=== PATIENT | female | born 1995 | race Caucasian/White ===

== ENCOUNTER 2016-12-11 05:04 | Emergency (ER) | payer MEDICAID ==
[~2016-12-11] VITALS: Ht 162.6 cm; Wt 54.5 kg
[2016-12-11 05:16] VITALS: Ht 162.6 cm; Wt 54.5 kg
[2016-12-11] MEDS ORDERED: KETOROLAC 60 MG INJ IM STA (05:30)
[2016-12-11] MEDS ORDERED: ONDANSETRON (ODT) 4 MG TAB ODT STA (05:37)
[2016-12-11 05:52] LABS: URINE BLOOD (Dip) POC Trace-intact (NEGATIVE)
[2016-12-11 05:59] LABS: BASOPHILS % 0.2 % (0.0-2.0); EOSINOPHILS % 0.1 % (0.0-7.0); HEMATOCRIT 40.5 % (37.0-47.0); LYMPHOCYTES # 1.1 10^3/ul (0.8-2.9); LYMPHOCYTES % 10.5 % (15.0-51.0); MEAN CORPUSCULAR HEMOGLOBIN 27.1 pg (29.0-33.0); MEAN CORPUSCULAR HGB CONC 32.1 g/dl (32.0-37.0); MEAN CORPUSCULAR VOLUME 84.6 fl (82.0-101.0); MEAN PLATELET VOLUME 11.2 fl (7.4-10.4); MONOCYTE # 0.3 10^3/ul (0.3-0.9); MONOCYTES % 2.8 % (0.0-11.0); NEUTROPHIL # 9.3 10^3/ul (1.6-7.5); NEUTROPHILS % 86.2 % (39.0-77.0); PLATELET COUNT 226 10^3/UL (140-415); RED BLOOD COUNT 4.79 10^6/ul (4.20-5.40); RED CELL DISTRIBUTION WIDTH 13.2 % (11.5-14.5); WHITE BLOOD COUNT 10.7 10^3/ul (4.8-10.8)
[2016-12-11 06:10] LABS: ADD UMIC NO; UR ASCORBIC ACID 20 mg/dL (NEGATIVE); UR BILIRUBIN (Dip) NEGATIVE (NEGATIVE); UR BLOOD (Dip) NEGATIVE (NEGATIVE); UR CLARITY CLEAR (CLEAR); UR COLOR YELLOW (YELLOW); UR GLUCOSE (Dip) 1+ mg/dL (NEGATIVE); UR KETONES (Dip) 1+ mg/dL (NEGATIVE); UR LEUKOCYTE ESTERASE (Dip) NEGATIVE Leu/ul (NEGATIVE); UR NITRITE (Dip) NEGATIVE (NEGATIVE); UR SPECIFIC GRAVITY (Dip) 1.018 (1.003-1.030); UR TOTAL PROTEIN (Dip) NEGATIVE (NEGATIVE); UR UROBILINOGEN (Dip) NEGATIVE (NEGATIVE)
[2016-12-11 06:28] LABS: D-DIMER 220.13 ng/ml (<460)
[2016-12-11 06:31] LABS: ALBUMIN 4.6 g/dl (3.3-4.9); ALBUMIN/GLOBULIN RATIO 1.31; BILIRUBIN,INDIRECT 0.5 mg/dl (0-1.1); BILIRUBIN,TOTAL 0.5 mg/dl (0.2-1.3); CALCIUM 9.6 mg/dl (8.4-10.2); CREATININE 0.64 mg/dl (0.44-1.00); POTASSIUM 4.1 mmol/L (3.5-5.1); TOTAL PROTEIN 8.1 g/dl (6.1-8.1)
--- NOTE | 2016-12-11 06:42 | RADRPT ---
PROCEDURE: XR Chest. CLINICAL INDICATION: Abdominal pain TECHNIQUE: Single portable view of the chest was obtained. COMPARISON: None. FINDINGS: Normal cardiomediastinal silhouette. The lungs are clear. No pleural effusion or pneumothorax. IMPRESSION: No acute cardiopulmonary disease. RPTAT:AAJJ Physician [place] Date Time Electronically viewed and signed by Shruthi Luna Physician on 12/11/2016 06:42 /
[2016-12-11] MEDS ORDERED: IBUP400T22 PO (06:53)
--- NOTE | 2016-12-11 06:57 | ERD ---
ER Documentation Chief Complaint Date/Time DATE: 12/11/16 TIME: 06:55 Chief Complaint epigastric pain w/ vomiting since 5 hours ago HPI 21-year-old female presents with left upper abdominal pain or left anterior chest wall pain starting early this morning. She denies any fevers, cough, sore throat. She denies any lower abdominal pain. She has a sensation of possible shortness of breath. She denies any calf swelling. She denies any oral contraceptive use or history of DVT or PE. ROS All systems reviewed and are negative except as per history of present illness. Medications Home Meds Active Scripts Ibuprofen* (Motrin*) 400 Mg Tab, 400 MG PO Q6, #20 TAB Prov:GIL PAUL MD 12/11/16 Allergies Allergies: Coded Allergies: No Known Allergy (Unverified , 12/11/16) PMhx/Soc Medical and Surgical Hx: pt denies Medical Hx, pt denies Surgical Hx Hx Alcohol Use: No Hx Substance Use: No Hx Tobacco Use: No Smoking Status: Never smoker Physical Exam Vitals Vital Signs Date Time Temp Pulse Resp B/P Pulse Ox O2 Delivery O2 Flow Rate FiO2 12/11/16 05:16 98.8 104 20 111/64 99 Physical Exam Const: [], [id number]. Head: Atraumatic Eyes: Normal Conjunctiva ENT: Normal External Ears, Nose and Mouth. Neck: Full range of motion..~ No meningismus. Resp: Clear to auscultation bilaterally Cardio: Regular rate and rhythm, no murmurs Abd: Soft, non tender, non distended. Normal bowel sounds are patient points to the left T10 area as a source of pain. Is not reproducible. There is no tenderness at McBurney's point no Meyer sign and no rebound. Skin: No petechiae or rashes Back: No midline or flank tenderness Ext: No cyanosis, or edema Neur: Awake and alert Psych: Normal Mood and Affect Result Diagram: 12/11/16 0547 12/11/16 0547 Results 24 hrs Laboratory Tests Test 12/11/16 05:45 12/11/16 05:47 12/11/16 06:00 Urine Color YELLOW Urine Clarity CLEAR Urine pH 7.0 Urine Specific Sarah 1.018 Urine Ketones 1+mg/dL Urine Nitrite NEGATIVEmg/dL Urine Bilirubin NEGATIVEmg/dL Urine Urobilinogen NEGATIVEmg/dL Urine Leukocyte Esterase NEGATIVELeu/ul Urine Hemoglobin NEGATIVEmg/dL Urine Glucose 1+mg/dL Urine Total Protein NEGATIVEmg/dl White Blood Count 10.710^3/ul Red Blood Count 4.7910^6/ul Hemoglobin 13.0g/dl Hematocrit 40.5% Mean Corpuscular Volume 84.6fl Mean Corpuscular Hemoglobin 27.1pg Mean Corpuscular Hemoglobin Concent 32.1g/dl Red Cell Distribution Width 13.2% Platelet Count 61734^3/UL Mean Platelet Volume 11.2fl Neutrophils % 86.2% Lymphocytes % 10.5% Monocytes % 2.8% Eosinophils % 0.1% Basophils % 0.2% Nucleated Red Blood Cells % 0.0/100WBC Neutrophils # 9.310^3/ul Lymphocytes # 1.110^3/ul Monocytes # 0.310^3/ul Eosinophils # 0.010^3/ul Basophils # 0.010^3/ul Nucleated Red Blood Cells # 0.010^3/ul D-Dimer 220.13ng/ml D-Dimer Comment Sodium Level 142mmol/L Potassium Level 4.1mmol/L Chloride Level 106mmol/L Carbon Dioxide Level 25mmol/L Anion Gap 15 Blood Urea Nitrogen 13mg/dl Creatinine 0.64mg/dl Glucose Level 125mg/dl Calcium Level 9.6mg/dl Total Bilirubin 0.5mg/dl Direct Bilirubin 0.00mg/dl Indirect Bilirubin 0.5mg/dl Aspartate Amino Transf (AST/SGOT) 29IU/L Alanine Aminotransferase (ALT/SGPT) 35IU/L Alkaline Phosphatase 45IU/L Total Protein 8.1g/dl Albumin 4.6g/dl Globulin 3.50g/dl Albumin/Globulin Ratio 1.31 Lipase 138U/L Bedside Urine pH (LAB) 7.0 Bedside Urine Protein (LAB) Negative Bedside Urine Glucose (UA) Negative Bedside Urine Ketones (LAB) 2+ Bedside Urine Blood Trace-intact Bedside Urine Nitrite (LAB) Negative Bedside Urine Leukocyte Esterase (L Negative Current Medications Medications (Trade) Dose Ordered Sig/Mich Route PRN Reason Start Time Stop Time Status Last Admin Dose Admin Ketorolac Tromethamine (Toradol) 60 mg ONCE STAT IM 12/11/16 05:30 12/11/16 05:32 DC 12/11/16 06:21 Ondansetron HCl (Zofran Odt) 4 mg ONCE STAT ODT 12/11/16 05:37 12/11/16 05:38 DC 12/11/16 06:21 Procedures/MDM Chest X-ray 1V Interpreted by me: Soft Tissue: No acute abnormalities Bones: No acute abnormalities Mediastinum/Cardiac Silhouette/Lungs: [No acute abnormalities] patient have normal 1 view chest x-ray EKG: Rate/Rhythm: [Normal Sinus Rhythm] rate equals 92 QRS, ST, T-waves: [No changes consistent w/ acute ischemia] Impression: [No evidence of ischemia or arrhythmia] CBC shows no acute abnormalities. CMP is normal. Given the uncertain cause of chest wall pain shortness of breath intermittent mild tachycardia d-dimer was performed which was negative. Patient stable throughout the ED course. Patient had improved pain after observation treatment. Patient presents with left lower chest wall pain of uncertain etiology. There is no current evidence of PE, pneumonia, respiratory distress, hypoxemia,, acute cardiopulmonary etiology, acute abdomen. She will discharged home with ibuprofen, observation, return precautions and primary care follow-up. Departure Diagnosis: Primary Impression: Chest wall pain Condition: Stable Patient Instructions: Chest Pain, Uncertain Cause, Chest Wall Strain Additional Instructions: Examinations normal today. Recheck for new or worsening symptoms have not fevers, vomiting, blood, lower abdominal pain, or with primary care doctor this week. GIL PAUL MD Dec 11, 2016 06:57
[2016-12-11 07:42] VITALS: BP 118/62; PULSE 71; RESP 19; TEMP 98.2
== END 2016-12-11 07:43 | disposition home or self-care (01) ==
LOC: FTE 05:04
DX: R07.89 Other chest pain (principal)
CPT/HCPCS: 36415; 71010; 80053; 81003; 83690; 85025; 85378; 93005; 96372; J1885; Z7502; Z7610

== ENCOUNTER 2016-12-12 22:29 | Emergency (ER) | payer SELFPAY ==
[~2016-12-12] VITALS: Ht 160 cm; Wt 54.0 kg
[~2016-12-12 22:29] MED LIST: IBUP400T22 PO
[2016-12-12 22:39] VITALS: Ht 160 cm; Wt 54.0 kg
== END 2016-12-13 00:30 | disposition left against medical advice (07) ==
LOC: FTE 22:29
DX: Z53.21 Procedure and treatment not carried out due to patient leaving prior to being seen by health care provider (principal)

== ENCOUNTER 2018-02-11 20:20 | Emergency (ER) | END 2018-02-11 22:44 | disposition home or self-care (01) ==